=== PATIENT | female | born 1970 | race Caucasian/White ===

== ENCOUNTER 2016-11-18 06:35 | Day surgery (SDC) | payer BC ==
--- NOTE | ~2016-11-18 | EGD ---
EGD REPORT [facility] [address] [address] NAME: LUDMILA HENDRCIKS : [birth year] STATUS : REG [facility]#: [id number] AGE: 46 ADM/REG DATE : 11/18/16 MR#: [id number] REPORT SERV DATE: 11/18/16 DICTATED BY: NARCISA BRADSHAW DATE: 11/18/16 REPORT STATUS : Draft TRANSCRIBED BY: [facility] DATE: 11/18/16 Endoscopy Center Patient Name: Ludmila Hendricks Date of : 1970 Attending MD: NARCISA BRADSHAW MD Procedure Date No Time: 11/18/2016 Procedure: Upper GI endoscopy Indications: Epigastric abdominal pain, Heartburn Medicines: Propofol per Anesthesia Complications: No immediate complications. Procedure: After obtaining informed consent, the endoscope was passed under direct vision. Throughout the procedure, the patient's blood pressure, pulse, and oxygen saturations were monitored continuously. The GIF [id number] was introduced through the mouth, and advanced to the second part of duodenum. The upper GI endoscopy was accomplished without difficulty. The patient tolerated the procedure well. Findings: The examined esophagus was normal. A small hiatus hernia was present. as seen on retroflexion Diffuse mild inflammation characterized by congestion (edema) and erythema was found in the entire examined stomach. Biopsies were taken with a cold forceps for Helicobacter pylori testing. Localized mild inflammation characterized by congestion (edema) and erythema was found in the duodenal bulb. Biopsies were taken with a cold forceps for evaluation of celiac disease. And giardia, whipple's disease, and enteritis The 2nd part of the duodenum was normal. Biopsies were taken with a cold forceps for evaluation of celiac disease. And giardia, whipple's disease, and enteritis Impression: - Normal esophagus. - Hiatus hernia. - Gastritis. Biopsied. - Duodenitis. Biopsied. - Normal 2nd part of the duodenum. Biopsied. Recommendation: - Patient has a contact number available for emergencies. The signs and symptoms of potential delayed complications were discussed with the patient. Return to normal activities tomorrow. Written discharge instructions were provided to the patient. - Return to previous diet. EGD REPORT [address] [place]. [address] NAME: LUDMILA HENDRICKS : [birth year] [place]US [place] [facility] [place] [id number] AGE: 46 ADM/REG DATE : 11/18/16 MR#: [id number] REPORT SERV DATE: 11/18/16 DICTATED BY: NARCISA BRADSHAW DATE: 11/18/16 REPORT STATUS : Draft TRANSCRIBED BY: [facility] DATE: 11/18/16 - Continue present medications. - Use Protonix (pantoprazole) 40 mg PO daily. - take 30-60 minutes before breakfast or supper - Use sucralfate tablets 1 gram PO QID. - take before each meal and at bedtime - Await pathology results. - Return to my office as previously scheduled. - Discharge patient to home. Procedure Code(s): --- Professional --- 25159, Esophagogastroduodenoscopy, flexible, transoral; with biopsy, single or multiple Diagnosis Code(s): --- Professional --- K44.9, Diaphragmatic hernia without obstruction or gangrene K29.70, Gastritis, unspecified, without bleeding K29.80, Duodenitis without bleeding R10.13, Epigastric pain R12, Heartburn CPT copyright 2013 [employer]. All rights reserved. The codes documented in this report are preliminary and upon retail store assistant review may be revised to meet current compliance requirements. Narcisa Bradshaw MD NARCISA BRADSHAW MD 11/18/2016 9:34 AM This report has been signed electronically. Number of Addenda: 0 Note Initiated On: 11/18/2016 8:16 AM Scope Withdrawal Time 0 hours 0 minutes 0 seconds
[~2016-11-18 06:35] MED LIST: SUCR PO
== END 2016-11-18 23:59 | disposition home or self-care (01) ==
LOC: DMU 06:35
PROVIDERS: Internal Medicine Gastroenterology
PROC: 0DB98ZX Excision of Duodenum, Via Natural or Artificial Opening Endoscopic, Diagnostic (ICD-10-PCS; 2016-11-18)
PROC: 0DB68ZX Excision of Stomach, Via Natural or Artificial Opening Endoscopic, Diagnostic (ICD-10-PCS; principal; 2016-11-18 08:00)
DX: K44.9 Diaphragmatic hernia without obstruction or gangrene (principal); K29.70 Gastritis, unspecified, without bleeding; K29.80 Duodenitis without bleeding; R10.13 Epigastric pain; R12 Heartburn; Z98.890 Other specified postprocedural states; Z87.19 Personal history of other diseases of the digestive system; Z97.5 Presence of (intrauterine) contraceptive device; Z88.8 Allergy status to other drugs, medicaments and biological substances; Z88.6 Allergy status to analgesic agent; Z79.899 Other long term (current) drug therapy
CPT/HCPCS: 84703; 88305; J2405